=== PATIENT | female | born 1970 | race Asian ===

== ENCOUNTER 2017-09-14 20:29 | Emergency (ER) | payer OTHER ==
[2017-09-14 20:51] VITALS: BP 131/70
--- NOTE | 2017-09-14 21:20 | UC ---
Complaint Female HPI - HPI Summary HPI Summary: 47 y/o female presents to the urgent care c/o epigastric abdominal pain w/ b/L flank pain for the past 2 days. Pt developed fever today. Pt reports she had a UTI at the end on 07/2017. She did an OTC UA which was positive. She self Tx her w/ Ciprofloxacin PO for 3 days that she had at home from Previous UTI. She feel fatigue w/ body aches today. Pain starts in the flank area and radiates to the epigastric area. Pain is sharp and intermittent, 8/10. Pt has not taking anything to alleviate symptoms. Pt denies JOHNSON, SOB, chest pain, lower back pain , hematuria, urinary symptoms, Hx of renal stones, N/V/D, vaginal discharge, Hx of STD's. LMP:08/31/2017 w/ regular menstrual cycles. - History Of Current Complaint Chief Complaint: UCGU Stated Complaint: STOMACH PAIN, BODY ACHES Time Seen by Provider: 09/14/17 20:56 Hx Obtained From: Patient Hx Last Menstrual Period: 09/01/17 Onset/Duration: Gradual Onset, Lasting Days - 2 days, Still Present, Worse Since - today Timing: Constant Severity Initially: Mild Severity Currently: Moderate Pain Intensity: 8 Pain Scale Used: 0-10 Numeric Character: Sharp Aggravating Factor(s): Nothing Alleviating Factor(s): Nothing Associated Signs And Symptoms: Positive: Fever, Back Pain - B/L flank pain. Negative: Vaginal Bleeding/Discharge, Vaginal Discharge, Nausea, Vomiting(# Of Episodes =), Genital Swelling, Genital Blisters - Risk Factors Ectopic Risk Factor: Negative Ovarian Torsion Risk Factor: Negative - Allergies/Home Medications Allergies/Adverse Reactions: Allergies Allergy/AdvReac Type Severity Reaction Status Date / Time latex AdvReac Runny Nose Verified 09/14/17 21:52 Home Medications: Home Medications NK [No Home Medications Reported] 09/14/17 [History Confirmed 09/14/17] PMH/Surg Hx/FS Hx/Imm Hx Previously Healthy: Yes Other GI/ History: Recurrent UTIs - Surgical History Surgical History: Yes Surgery Procedure, Year, and Place: Lt KNEE - 05/10/17 @ [place]. C SECTIONS - Family History Known Family History: Positive: Diabetes - Social History Occupation: Employed Full-time Lives: With Family Alcohol Use: None Substance Use Type: None Smoking Status (MU): Never Smoked Tobacco Review of Systems Constitutional: Fever, Chills, Fatigue Skin: Negative Eyes: Negative ENT: Negative Respiratory: Negative Cardiovascular: Negative Gastrointestinal: Abdominal Pain - epigastric abdominal pain Genitourinary: Other - B/L flank pain Motor: Negative Neurovascular: Negative Musculoskeletal: Negative Neurological: Negative Psychological: Negative Is Patient Immunocompromised?: No All Other Systems Reviewed And Are Negative: Yes Physical Exam - Summary Physical Exam Summary: VITAL SIGNS: Reviewed. GENERAL: Patient is a well developed and nourished female who is sitting comfortable in the examining table. Patient is not in any acute respiratory distress. HEAD AND FACE: No signs of trauma. No ecchymosis, hematomas or skull depressions. No sinus tenderness. EYES: PERRLA, EOMI x 2, No injected conjunctiva, clear watery eyes, no nystagmus. No photophobia. EARS: Hearing grossly intact. Ear canals and tympanic membranes are within normal limits. MOUTH: pharynx with no erythema, no exudates,no palatal petechiae. no B/L tonsillar enlargement Uvula in midline. NECK: Supple, trachea is midline, no lymphadenopathy, no JVD, no carotid bruit, no c-spine tenderness, neck with full ROM. CHEST: Symmetric, no tenderness at palpation LUNGS: Clear to auscultation bilaterally. No wheezing or crackles. CVS: Regular rate and rhythm, S1 and S2 present, no murmurs or gallops appreciated. ABDOMEN: Soft, non-tender. No signs of distention. No rebound no guarding, and no masses palpated. Bowel sounds are normal. BACK:no scoliosis or lesions, non tender to palpation, Positive B/L CVA tenderness EXTREMITIES: FROM in all major joints, no edema, no cyanosis or clubbing. NEURO: Alert and oriented x 3. No acute neurological deficits. Speech is normal and follows commands. SKIN: Dry and warm Triage Information Reviewed: Yes Vital Signs: Initial Vital Signs Temp 100.5 F 09/14/17 20:47 Pulse 78 09/14/17 20:47 Resp 20 09/14/17 20:47 BP 131/70 09/14/17 20:47 Pulse Ox 100 09/14/17 20:47 Complaint Female Dx - Course Course Of Treatment: 47 y/o female presents to the urgent care c/o epigastric abdominal pain w/ b/L flank pain for the past 2 days. Pt developed fever today. Pt reports she had a UTI at the end on 07/2017. She did an OTC UA which was positive. She self Tx her w/ Ciprofloxacin PO for 3 days that she had at home from Previous UTI. She feel fatigue w/ body aches today. Pain starts in the flank area and radiates to the epigastric area. Pain is sharp and intermittent, 8/10. Pt has not taking anything to alleviate symptoms. Pt denies JOHNSON, SOB, chest pain, lower back pain, urinary symptoms, hematuria, Hx of renal stones, N/V/D, vaginal discharge, Hx of STD's. LMP:08/31/2017 w/ regular menstrual cycles. Hx obtained. PE: Pt is febrile : 100.5F w/ B/L CVA tenderness and point tenderness on epigastric area on examiantion. UA ordered: trace of ketones. Pt may be mildly dehydrated. Symptoms discussed w/ Dr Rodriguez and since Pt is febrile she recommends Pt to go to the ER for further work -up. At this moment no CT or ultrasound available. Also Pt needs blood work since Pt seems in mild pain distress. Pt expalined the need for further work up and the need to go to the ER. Pt understood and agreed and stated he will take Pt to the ER on his private car. Pt left the clinic hemodynamically stable, A&OX3. - Differential Dx/Diagnosis Differential Diagnosis/HQI/PQRI: Pelvic Inflammatory Disease, Renal Colic, Sexually Transmitted Disease, Ureteral Stone, Urinary Tract Infection Provider Diagnoses: 1- B/L Flank pain. 2-Acute epigastric abdominal pain. 3- fever - Physician Notifications Discussed Patient Care With: Moraima Rodriguez - Dr Rodriguez agreed w/ Pt's plan of care. Discharge - Sign-Out/Discharge Documenting (check all that apply): Discharge/Admit/Transfer - Pt highly recommended to go to the [place] ER for further treatment. - Discharge Plan Condition: Stable Disposition: TRANS HIGHER LVL OF CARE FAC Patient Education Materials: Flank Pain (ED) Referrals: Enmanuel Gu MD [Primary Care Provider] - 2 Days Additional Instructions: I think you need a higher level or care for your presenting symptoms. I highly recommend you to go to the ER for further evaluation and treatment. The risks of not going can be , sepsis, pyelonephritis. - Billing Disposition and Condition Condition: STABLE Disposition: Trans Higher Lvl of Care Fac
== END 2017-09-14 21:24 | disposition short-term general hospital (02) ==
LOC: UCEAST 20:29
DX: R10.13 Epigastric pain (principal); R50.9 Fever, unspecified; R53.83 Other fatigue; R52 Pain, unspecified
CPT/HCPCS: 81003; 99201; G0463

== ENCOUNTER 2017-09-14 21:42 | Emergency (ER) | payer OTHER ==
[2017-09-14] MEDS ORDERED: NS 0.9% 1000 ML* 1,000 ML IV ONE (22:47)
[2017-09-14 22:49] LABS: ABS Basophils 0.1 10^3/ul (0-0.2); ABS Eosinophils 0.1 10^3/ul (0-0.6); ABS Lymphocytes 1.3 10^3/ul (1.0-4.8); ABS Monocytes 0.5 10^3/ul (0-0.8); ABS Neutrophils 3.6 10^3/ul (1.5-7.7); ABS Nucleated RBC 0 10^3/ul; Eosinophil % 2.4 % (0-6); Hematocrit 39 % (35-47); Hemoglobin 13.6 g/dl (12.0-16.0); Mean Corpuscular HGB Conc 35 g/dl (31-36); Mean Corpuscular Hemoglobin 33 pg (27-31); Mean Corpuscular Volume 93 fL (80-97); Mean Platelet Volume 7.7 um3 (7.4-10.4); Nucleated Red Blood Cells % 0; Platelet Count 270 10^3/ul (150-450); Red Blood Count 4.19 10^6/ul (4.00-5.40); Red Cell Distribution Width 13 % (10.5-15); White Blood Count 5.5 10^3/ul (3.5-10.8)
[2017-09-14 22:54] VITALS: BP 112/78
[2017-09-14 23:04] LABS: Urine Appearance Clear; Urine Blood Negative (Negative); Urine Color Straw; Urine Ketones Negative (Negative); Urine Protein Negative (Negative); Urine Specific Gravity 1.005 (1.010-1.030); Urine Urobilinogen Negative (Negative)
[2017-09-14 23:06] LABS: EGFR Non-African American 85.1 (>60)
--- NOTE | 2017-09-15 00:53 | ED ---
HPI Febrile Illness - HPI Summary HPI Summary: 47-year-old female presents with malaise, bilateral flank pain and abdominal pain for the past week. She states she still diagnosis of UTI based on the home kit 3 weeks ago. She states she took old Cipro that she had home. States her symptoms of uti and resolved. A week ago she got bit by a bug. She is unsure what felt got bit by but is requesting was West Nile. States that a day later she developed some malaise. She's been having intermittent fevers. She hasn't taken anything for fevers. She admits to nausea but denies any diarrhea or vomiting. No blood in her stool. She denies any headache. She admits to generalized body aches. Some neck stiffness but no photophobia. Has full range of motion of neck. No sore throat. No cough. No shortness of breath or chest pain. She states her belly pain is in her epigastric region. States her pain initially started with lower and then moved up to the epigastric. She denies any abnormal vaginal discharge. No hematuria or history of kidney stones. She states that she has bilateral flank pain that has been keeping up at night. No injury. No saddle anesthesia or loss of bowel or bladder. - History of Current Complaint Chief Complaint: EDFlankPain Time Seen by Provider: 09/14/17 22:19 Hx Last Menstrual Period: 09/01/17 Pain Intensity: 5 - Allergy/Home Medications Allergies/Adverse Reactions: Allergies Allergy/AdvReac Type Severity Reaction Status Date / Time latex AdvReac Runny Nose Verified 09/14/17 21:52 PMH/Surg Hx/FS Hx/Imm Hx Endocrine/Hematology History: Denies: Hx Diabetes, Hx Thyroid Disease Cardiovascular History: Denies: Hx Hypertension, Hx Pacemaker/ICD Respiratory History: Denies: Hx Asthma, Hx Chronic Obstructive Pulmonary Disease (COPD) GI History: Denies: Hx Ulcer History: Reports: Hx Renal Disease - IGA - IMMUNO DISORDER Sensory History: Denies: Hx Hearing Aid Psychiatric History: Denies: Hx Panic Disorder - Surgical History Surgery Procedure, Year, and Place: Lt KNEE - 05/10/17 @ [place]. C SECTIONS Infectious Disease History: No Infectious Disease History: Denies: Hx Hepatitis, Hx Human Immunodeficiency Virus (HIV), Traveled Outside the [place] in Last 30 Days - Family History Known Family History: Negative: Diabetes - Social History Alcohol Use: None Substance Use Type: Reports: None Smoking Status (MU): Never Smoked Tobacco Review of Systems Positive: Fever, Fatigue Negative: Chest Pain Negative: Shortness Of Breath, Cough Positive: Abdominal Pain, Nausea. Negative: Vomiting, Diarrhea Positive: Weakness All Other Systems Reviewed And Are Negative: Yes Physical Exam Triage Information Reviewed: Yes Vital Signs On Initial Exam: Initial Vitals Temp Pulse Resp BP Pulse Ox 98.7 F 78 16 112/79 100 09/14/17 21:47 09/14/17 21:47 09/14/17 21:47 09/14/17 21:47 09/14/17 21:47 Vital Signs Reviewed: Yes Appearance: Positive: Well-Appearing Skin: Positive: Warm, Dry Head/Face: Positive: Normal Head/Face Inspection Eyes: Positive: Normal, EOMI, SELINA, Conjunctiva Clear ENT: Positive: Normal ENT inspection, Pharynx normal, TMs normal Neck: Positive: Supple, Nontender, No Lymphadenopathy Respiratory/Lung Sounds: Positive: Clear to Auscultation, Breath Sounds Present Cardiovascular: Positive: Normal, RRR Abdomen Description: Positive: Soft, Other: - tenderness epigastric, neg [place]. Negative: CVA Tenderness (R), CVA Tenderness (L) Bowel Sounds: Positive: Present Musculoskeletal: Positive: Normal Neurological: Positive: Normal Psychiatric: Positive: Normal Diagnostics - Vital Signs Vital Signs Temp Pulse Resp BP Pulse Ox 09/14/17 22:51 69 100 09/14/17 22:50 112/78 09/14/17 22:19 98.5 F 09/14/17 21:47 98.7 F 78 16 112/79 100 - Laboratory Lab Results: Lab Results 09/14/17 09/14/17 09/14/17 Range/Units 22:40 22:42 22:42 WBC 5.5 (3.5-10.8) 10^3/ul RBC 4.19 (4.00-5.40) 10^6/ul Hgb 13.6 (12.0-16.0) g/dl Hct 39 (35-47) % MCV 93 (80-97) fL MCH 33 H (27-31) pg MCHC 35 (31-36) g/dl RDW 13 (10.5-15) % Plt Count 270 (150-450) 10^3/ul MPV 7.7 (7.4-10.4) um3 Neut % (Auto) 64.7 (38-83) % Lymph % (Auto) 23.0 L (25-47) % [place] % (Auto) 9.0 H (0-7) % Eos % (Auto) 2.4 (0-6) % Baso % (Auto) 0.9 (0-2) % Absolute Neuts (auto) 3.6 (1.5-7.7) 10^3/ul Absolute Lymphs (auto) 1.3 (1.0-4.8) 10^3/ul Absolute Monos (auto) 0.5 (0-0.8) 10^3/ul Absolute Eos (auto) 0.1 (0-0.6) 10^3/ul Absolute Basos (auto) 0.1 (0-0.2) 10^3/ul Absolute Nucleated RBC 0 10^3/ul Nucleated RBC % 0 D-Dimer, Quantitative (Less Than 230) ng/mL Sodium 136 (135-145) mmol/L Potassium 3.3 L (3.5-5.0) mmol/L Chloride 105 (101-111) mmol/L Carbon Dioxide 24 (22-32) mmol/L Anion Gap 7 (2-11) mmol/L BUN 14 (6-24) mg/dL Creatinine 0.73 (0.51-0.95) mg/dL Est GFR ( Amer) 103.0 (>60) Est GFR (Non-Af Amer) 85.1 (>60) BUN/Creatinine Ratio 19.2 (8-20) Glucose 93 (70-100) mg/dL Lactic Acid (0.5-2.0) mmol/L Calcium 9.5 (8.6-10.3) mg/dL Total Bilirubin 0.50 (0.2-1.0) mg/dL AST 13 (13-39) U/L ALT 10 (7-52) U/L Alkaline Phosphatase 36 (34-104) U/L C-Reactive Protein 4.03 (<8.01) mg/L Total Protein 7.5 (6.4-8.9) g/dL Albumin 4.4 (3.2-5.2) g/dL Globulin 3.1 (2-4) g/dL Albumin/Globulin Ratio 1.4 (1-3) Lipase 55 (11.0-82.0) U/L Beta HCG, Quant < 0.60 mIU/mL Urine Color Straw Urine Appearance Clear Urine pH 8.0 (5-9) Ur Specific [place] 1.005 L (1.010-1.030) Urine Protein Negative (Negative) Urine Ketones Negative (Negative) Urine Blood Negative (Negative) Urine Nitrate Negative (Negative) Urine Bilirubin Negative (Negative) Urine Urobilinogen Negative (Negative) Ur Leukocyte Esterase Negative (Negative) Urine Glucose Negative (Negative) 09/14/17 09/15/17 Range/Units 22:42 00:20 WBC (3.5-10.8) 10^3/ul RBC (4.00-5.40) 10^6/ul Hgb (12.0-16.0) g/dl Hct (35-47) % MCV (80-97) fL MCH (27-31) pg MCHC (31-36) g/dl RDW (10.5-15) % Plt Count (150-450) 10^3/ul MPV (7.4-10.4) um3 Neut % (Auto) (38-83) % Lymph % (Auto) (25-47) % [place] % (Auto) (0-7) % Eos % (Auto) (0-6) % Baso % (Auto) (0-2) % Absolute Neuts (auto) (1.5-7.7) 10^3/ul Absolute Lymphs (auto) (1.0-4.8) 10^3/ul Absolute Monos (auto) (0-0.8) 10^3/ul Absolute Eos (auto) (0-0.6) 10^3/ul Absolute Basos (auto) (0-0.2) 10^3/ul Absolute Nucleated RBC 10^3/ul Nucleated RBC % D-Dimer, Quantitative < 200 (Less Than 230) ng/mL Sodium (135-145) mmol/L Potassium (3.5-5.0) mmol/L Chloride (101-111) mmol/L Carbon Dioxide (22-32) mmol/L Anion Gap (2-11) mmol/L BUN (6-24) mg/dL Creatinine (0.51-0.95) mg/dL Est GFR ( Amer) (>60) Est GFR (Non-Af Amer) (>60) BUN/Creatinine Ratio (8-20) Glucose (70-100) mg/dL Lactic Acid 0.7 (0.5-2.0) mmol/L Calcium (8.6-10.3) mg/dL Total Bilirubin (0.2-1.0) mg/dL AST (13-39) U/L ALT (7-52) U/L Alkaline Phosphatase (34-104) U/L C-Reactive Protein (<8.01) mg/L Total Protein (6.4-8.9) g/dL Albumin (3.2-5.2) g/dL Globulin (2-4) g/dL Albumin/Globulin Ratio (1-3) Lipase (11.0-82.0) U/L Beta HCG, Quant mIU/mL Urine Color Urine Appearance Urine pH (5-9) Ur Specific [place] (1.010-1.030) Urine Protein (Negative) Urine Ketones (Negative) Urine Blood (Negative) Urine Nitrate (Negative) Urine Bilirubin (Negative) Urine Urobilinogen (Negative) Ur Leukocyte Esterase (Negative) Urine Glucose (Negative) Result Diagrams: 09/14/17 22:42 09/14/17 22:42 Lab Statement: Any lab studies that have been ordered have been reviewed, and results considered in the medical decision making process. - Ultrasound No standard instances Ultrasound Interpretation: No Acute Changes Ultrasound Interpretation Completed By: Radiologist Course/Dx - Course Course Of Treatment: 47-year-old female presents with malaise, bilateral flank pain and abdominal pain for the past week. She states she still diagnosis of UTI based on the home kit 3 weeks ago. She states she took old Cipro that she had home. States her symptoms of uti and resolved. A week ago she got bit by a bug. She is unsure what felt got bit by but is requesting was West Nile. States that a day later she developed some malaise. She's been having intermittent fevers. She hasn't taken anything for fevers. She admits to nausea but denies any diarrhea or vomiting. No blood in her stool. She denies any headache. She admits to generalized body aches. Some neck stiffness but no photophobia. Has full range of motion of neck. No sore throat. No cough. No shortness of breath or chest pain. She states her belly pain is in her epigastric region. States her pain initially started with lower and then moved up to the epigastric. She denies any abnormal vaginal discharge. No hematuria or history of kidney stones. She states that she has bilateral flank pain that has been keeping up at night. No injury. No saddle anesthesia or loss of bowel or bladder. On exam tenderness in epigastric region. Negative [place]'s. Pain is not in her right upper quadrant. Positive CVA tenderness bilaterally. Labs normal wbc CRP and lactate. Renal ultrasound negative. Urine shows no infection. Explained likely is a viral symptoms with all symptoms. ordered lyme and west nile although explained will take some time to come back. Patient will follow-up with primary. Patient understands agrees with plan. - Febrile Illness Differential Diagnoses: GI Disease, Pneumonia, Viremia - Diagnoses Provider Diagnoses: Fever, Abdominal pain Discharge - Sign-Out/Discharge Documenting (check all that apply): Discharge/Admit/Transfer - Discharge Plan Condition: Good Disposition: HOME Patient Education Materials: Viral Syndrome (ED) Referrals: Enmanuel Gu MD [Primary Care Provider] - Additional Instructions: symptoms likely from a viral syndrome try to stay hydrated take tyenlol for pain every 6 hours as needed Follow up with primary within 5 days Return to ED if develop any new or worsening symptoms - Billing Disposition and Condition Condition: GOOD Disposition: Home
--- NOTE | 2017-09-15 06:38 | RAD ---
INDICATION: Bilateral flank pain COMPARISON: None TECHNIQUE: Longitudinal and transverse scans of the kidneys were obtained. FINDINGS: Kidneys: The kidneys are normal in size and echogenicity. No renal masses, calculi, or hydronephrosis is seen. The right kidney measures 10.6 x 4.7 x 4.6 cm and the left kidney 10.3 x 4.3 x 5.5 cm. Other: There is an incidental hepatic cyst IMPRESSION: NO SONOGRAPHIC ABNORMALITIES OF EITHER KIDNEY.
== END 2017-09-15 00:53 | disposition home or self-care (01) ==
LOC: ED 21:42
DX: R50.9 Fever, unspecified (principal); R10.13 Epigastric pain; R53.83 Other fatigue; R11.0 Nausea; R53.81 Other malaise; Z91.040 Latex allergy status; N28.9 Disorder of kidney and ureter, unspecified; D81.9 Combined immunodeficiency, unspecified
CPT/HCPCS: 36415; 76775; 80053; 81003; 83605; 83690; 84702; 85025; 85379; 86140; 86618; 86788; 86789; 87040; 96360; 99283

== ENCOUNTER 2018-04-09 19:21 | Emergency (ER) | payer OTHER ==
--- OUTSIDE RECORDS SUMMARY | 2018-04-09 19:27 | XMS REPORT | Continuity of Care Document ---
:1970 External Reference #:[id number] Author Name Rosanne Walker Care Team Providers Name Role Phone Enmanuel Gu MD Primary Care Physician Unavailable Payers Type Date Identification Numbers Payment Provider Subscriber Policy Number: [id number] [employer] June Lg Márquez PayID: [id number] [address] [place] [address] Advance Directives Type Date Description Status Comment Other Directive 08/06/2017 Health Care Proxy Current and Verified Problems Date Description Provider Status Onset: 08/13/2017 Primary IgA nephropathy [facility] M.D[facility] Active Note: U/A completely normal 09/14/17 in ER; Onset: 08/20/2017 Patellar tendonitis Jaswant Valencia MD Active Onset: 03/13/2013 Polyp of gallbladder Adolfo Chang MD Active Note: in [place] multiple largest 6mm; Onset: 03/13/2013 Liver cyst Adolfo Chang MD Active Note: right lobe 2cm with septum Onset: 02/11/1991 Helicobacter-associated disease Adolfo Chang MD Active Note: treated in [place] and [place] (2016) Onset: 02/12/2004 Insomnia Adolfo Chang MD Active Note: took medical leave in 2011 Onset: 06/04/2017 Laceration without foreign body, left Jaswant Valencia MD Inactive knee, subsequent encounter Inactive: 08/13/2017 Family History Date Family Member(s) Problem(s) Comments Father Heart Disease Onset: (08/13/2017) Father 78 Father Diabetes Father Gout Onset: (08/13/2017) Mother 72 Mother Diabetes Mother Depression Siblings 1 Onset: (08/13/2017) First Sister 45 Maternal Grandmother Colon Cancer Social History Type Date Description Comments Sex Unknown Lives With 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 Tobacco Use Start: Unknown Never Smoked Cigarettes Smoking Status Reviewed: 03/13/18 Never Smoked Cigarettes ETOH Use 08/13/2017 Denies alcohol use Tobacco Use Start: Unknown Patient has never smoked Recreational Drug Use Denies Drug Use Exercise Type/Frequency Yoga Allergies, Adverse Reactions, Alerts Date Description Reaction Status Severity Comments 05/21/2017 NKDA Active 01/31/2018 Mold Active Medications Medication Date Status Form Strength Qnty SIG Indications Ordering Provider Triamcinolone Active Cream 0.1% 15gm apply Enmanuel Acetonide 018 every day Lion Gu, as needed SHEKHAR Jaqcues Calcium Citrate Active Tablets 200mg once Unknown 000 daily as needed No Active Hx Unknown Medications 018 - 018 Immunizations CPT Code Status Date Vaccine Lot # [id number] Given 05/10/2017 Tetanus And Diptheria (Td) For Adult Use Preservative Free Vital Signs Date Vital Result Comment 03/13/2018 2:55pm Height 60.23 inches 5'0.23" Weight 106.00 lb Heart Rate 67 /min BP Systolic 101 mmHg BP Diastolic 67 mmHg Respiratory Rate 16 /min Body Temperature 98.9 F O2 % BldC Oximetry 99 % BMI (Body Mass Index) 20.5 kg/m2 02/10/2018 2:16pm Height 60.23 inches 5'0.23" Weight 107.00 lb Heart Rate 63 /min BP Systolic 116 mmHg BP Diastolic 78 mmHg Respiratory Rate 18 /min O2 % BldC Oximetry 100 % BMI (Body Mass Index) 20.7 kg/m2 01/31/2018 11:26am Height 60.23 inches 5'0.23" Weight 115.38 lb Heart Rate 59 /min BP Systolic 103 mmHg BP Diastolic 68 mmHg Respiratory Rate 18 /min Body Temperature 96.9 F O2 % BldC Oximetry 100 % BMI (Body Mass Index) 22.4 kg/m2 11/19/2017 3:33pm Height 60.23 inches 5'0.23" Weight 111.00 lb Heart Rate 68 /min BP Systolic 102 mmHg BP Diastolic 66 mmHg Respiratory Rate 18 /min Pain Level 0 BMI (Body Mass Index) 21.5 kg/m2 09/13/2017 9:34am Height 60.23 inches 5'0.23" Weight 111.00 lb BP Systolic 108 mmHg BP Diastolic 64 mmHg Respiratory Rate 18 /min Pain Level 6 BMI (Body Mass Index) 21.5 kg/m2 09/05/2017 12:01pm Height 60.23 inches 5'0.23" Weight 110.00 lb Heart Rate 77 /min BP Systolic 98 mmHg BP Diastolic 80 mmHg O2 % BldC Oximetry 99 % BMI (Body Mass Index) 21.3 kg/m2 08/20/2017 9:49am Height 60.23 inches 5'0.23" Weight 111.00 lb Heart Rate 64 /min BP Systolic 86 mmHg BP Diastolic 62 mmHg Body Temperature 98.8 F Pain Level 4 BMI (Body Mass Index) 21.5 kg/m2 08/13/2017 3:15pm Height 60.25 inches 5'0.25" Weight 111.00 lb Heart Rate 64 /min BP Systolic Sitting 120 mmHg BP Diastolic Sitting 62 mmHg Body Temperature 97.3 F O2 % BldC Oximetry 98 % BMI (Body Mass Index) 21.5 kg/m2 06/04/2017 10:53am Height 60 inches 5'0" Weight 108.00 lb BP Systolic 116 mmHg BP Diastolic 72 mmHg Respiratory Rate 18 /min Pain Level 2 BMI (Body Mass Index) 21.1 kg/m2 05/28/2017 2:31pm Height 60 inches 5'0" Weight 108.00 lb per pt Heart Rate 70 /min reg BP Systolic Sitting 110 mmHg Rue BP Diastolic Sitting 70 mmHg Rue Respiratory Rate 16 /min Pain Level 0 BMI (Body Mass Index) 21.1 kg/m2 05/21/2017 9:23am Height 60 inches 5'0" Weight 108.00 lb Heart Rate 69 /min Respiratory Rate 14 /min Body Temperature 98.1 F Pain Level 3 BMI (Body Mass Index) 21.1 kg/m2 Results Test Date Facility Test Result H/L Range Note Xray 02/28/2018 [facility] US Gallbladder <pending> [address] [place] [address] [phone] US Liver <pending> CBC No Diff 02/20/2018 [facility] White Blood 3.5 10^3/uL N 3.5-10.[address] [place] [address] [phone] Red Blood Count 4.21 10^6/uL N 4.00-5.40 Hemoglobin 13.7 g/dL N 12.0-16.0 Hematocrit 40 % N 35-47 Mean Corpuscular Volume 95 fL N 80-97 Mean Corpuscular Hemoglobin 33 pg High 27-31 Mean Corpuscular HGB Conc 34 g/dL N 31-36 Red Cell Distribution Width 13 % N 10.5-15 Platelet Count 320 10^3/uL N 150-450 Mean Platelet Volume 8.1 fL N 7.4-10.4 Liver Function 02/20/2018 [facility] Total Protein 7.0 g/dL N 6.4-8.[address] [place] [address] [phone] Albumin 4.5 g/dL N 3.2-5.2 Globulin 2.5 g/dL N 2-4 Albumin/Globulin Ratio 1.8 N 1-3 Total Bilirubin 0.70 mg/dL N 0.2-1.0 Direct Bilirubin 0.10 mg/dL N 0.03-0.18 Indirect Bilirubin 0.6 mg/dL N 0.3-1.0 Alkaline Phosphatase 38 U/L N 34-104 Alt 11 U/L N 7-52 Ast 13 U/L N 13-39 Lipid Profile 02/20/2018 [facility] Triglycerides 90 mg/dL 1 (Trig/Chol/HDL) [address] [place] [address] [phone] Cholesterol 178 mg/dL 2 HDL Cholesterol 57.6 mg/dL 3 LDL Cholesterol 102 mg/dL 4 Laboratory test 09/15/2017 [facility] D Dimer < 200 N Less Than [address] Quantitative ng/mL [address] [place] [address] [phone] CBC Auto Diff 09/14/2017 [facility] White Blood Count 5.5 N 3.5-10.[address] 10^3/[place] [address] [phone] Red Blood Count 4.19 10^6/uL N 4.00-5.40 Hemoglobin 13.6 g/dL N 12.0-16.0 Hematocrit 39 % N 35-47 Mean Corpuscular Volume 93 fL N 80-97 Mean Corpuscular Hemoglobin 33 pg High 27-31 Mean Corpuscular HGB Conc 35 g/dL N 31-36 Red Cell Distribution Width 13 % N 10.5-15 Platelet Count 270 10^3/uL N 150-450 Mean Platelet Volume 7.7 um3 N 7.4-10.4 Abs Neutrophils 3.6 10^3/uL N 1.5-7.7 Abs Lymphocytes 1.3 10^3/uL N 1.0-4.8 Abs Monocytes 0.5 10^3/uL N 0-0.8 Abs Eosinophils 0.1 10^3/uL N 0-0.6 Abs Basophils 0.1 10^3/uL N 0-0.2 Abs Nucleated RBC 0 10^3/uL Granulocyte % 64.7 % N 38-83 Lymphocyte % 23.0 % Low 25-47 Monocyte % 9.0 % High 0-7 Eosinophil % 2.4 % N 0-6 Basophil % 0.9 % N 0-2 Nucleated Red Blood Cells % 0 Urinalysis Profile 09/14/2017 [facility] Urine Color Straw [address] [place] [address] [phone] Urine Appearance Clear Urine Specific [place] 1.005 Low 1.010-1.030 Urine pH 8.0 N 5-9 Urine Urobilinogen Negative Negative Urine Ketones Negative Negative Urine Protein Negative Negative Urine Leukocytes Negative Negative Urine Blood Negative Negative Urine Nitrite Negative Negative Urine Bilirubin Negative Negative Urine Glucose Negative Negative Laboratory test 09/14/2017 [facility] Lactic Acid 0.7 mmol/L N 0.5-2.0 6 finding [address] [place] [address] [phone] Comp Metabolic 09/14/2017 [facility] Sodium 136 mmol/L N 135- 145 Panel [address] [place] [address] [phone] Potassium 3.3 mmol/L Low 3.5-5.0 Chloride 105 mmol/L N 101-111 Co2 Carbon Dioxide 24 mmol/L N 22-32 Anion Gap 7 mmol/L N 2-11 Glucose 93 mg/dL N 70-100 Blood Urea Nitrogen 14 mg/dL N 6-24 Creatinine 0.73 mg/dL N 0.51-0.95 BUN/Creatinine Ratio 19.2 N 8-20 Calcium 9.5 mg/dL N 8.6-10.3 Total Protein 7.5 g/dL N 6.4-8.9 Albumin 4.4 g/dL N 3.2-5.2 Globulin 3.1 g/dL N 2-4 Albumin/Globulin Ratio 1.4 N 1-3 Total Bilirubin 0.50 mg/dL N 0.2-1.0 Alkaline Phosphatase 36 U/L N 34-104 Alt 10 U/L N 7-52 Ast 13 U/L N 13-39 Egfr Non- 85.1 >60 Egfr 103.0 >60 7 Laboratory test finding 09/14/2017 [facility] Lipase 55 U/L N 11.0-82.[address] [place] [address] [phone] C Reactive Protein 4.03 mg/L N <8.01 HCG < 0.60 mIU/mL 8 Blood Culture SEE RESULT BELOW 9 Lyme Disease Serology Negative Negative 10 West Nile Igg 09/14/2017 [facility] West Nile Virus Negative Negative And Igm [address] [place] [address] [phone] West Nile Virus IgM Negative Negative West Nile Serum Interpretation See Comment 11 Poc Urinalysis 09/14/2017 [facility] Poc Glucose, Negative Negative [address] [place] [address] [phone] Poc Bilirubin, Urine Negative Negative Poc Ketone, Urine Trace Abnormal Negative Poc Specific [place], Urine 1.010 N 1.010-1.030 Poc Blood, Urine Negative Negative Poc pH, Urine 8.5 N 5-9 Poc Protein, Urine Negative Negative Poc Urobilinogen, Urine 1.0 Negative Poc Nitrite, Urine Negative Negative Poc Leukocytes, Urine Negative Negative Poc Color, Urine Judith Poc Clarity, Urine Cloudy 12 Laboratory test 09/05/2017 [facility] Cytology SEE RESULT 13, [address] [place] [address] [phone] 1 Desirable: <150 Borderline High: 150-199 High: 200-499 Very High: >500 2 Desirable: <200 Borderline High: 200-239 High: >239 3 Low: <40 Desirable: 40-60 High: >60 4 Desirable: <100 Near Optimal: 100-129 Borderline High: 130-159 High: 160-189 Very High: >189 5 Please note: The following may produce a false positive D Dimer test: - Rheumatoid factor greater than 60 IU/ml - Plasma hemoglobin greater than 0.05 gm/dl - Bilirubin greater than 50 mg/dl - Lipids greater than 1000 mg/dl - FDP greater than 20 ug/ml 6 [facility] Severe Sepsis and Septic Shock Management Bundle Measure requires all lactic acids initially measuring >2.0 mmol/L be repeated. 7 Because ethnic data is not always readily available, this report includes an eGFR for both -Americans and non- Americans. The National Kidney Disease Education Program (NKDEP) does not endorse the use of the MDRD equation for patients that are not between the ages of 18 and 70, are , have extremes of body size, muscle mass, or nutritional status, or are non- or non-. According to the National Kidney Foundation, irrespective of diagnosis, the stage of the disease is based on the level of kidney function: Stage Description GFR(mL/min/1.73 m(2)) 1 Kidney damage with normal or decreased GFR 90 2 Kidney damage with mild decrease in GFR 60-89 3 Moderate decrease in GFR 30-59 4 Severe decrease in GFR 15-29 5 Kidney failure <15 (or dialysis) 8 <5.0 Negative 5.0 - 25.0 Indeterminate (Repeat testing recommended after 72 hours) >25.0 Positive Perimenopausal women can display HCG levels of up to 20 mIU/mL 9 SEE RESULT BELOW Name: LG MORIAH : [address]: Omar Clarke MD Acct: [id number] Unit: [id number] AGE: 47 Location: ED Re09/14/17 SEX: F Status: REG ER SPEC: [id number] MATHEW: 09/14/[address]: Taylor WARNER REQ: [id number] RECD: 09/14/17 STATUS: JUAQUIN STOREY DR: Enmanuel Clarke MD _ SOURCE: BLOOD,VENO SPDESC: ORDERED: Blood Cult Procedure Result Reported Site Aerobic Culture Bottle Final 09/19/172243 ML No Growth Day 5 Anaerobic Culture Bottle Final 09/19/172243 ML No Growth Day 5 * ML - Main Lab . END OF REPORT DEPARTMENT OF PATHOLOGY, [address] [place] [address] Jesse Davey M.D. Director [facility] # [id number] 10 No evidence of antibodies to B. burgdorferi detected. False negative results may occur in recently infected patients (<=2 weeks) due to low or undetectable antibody levels to B. burgdorferi. If recent exposure is suspected, a second sample should be collected and tested in 2-4 weeks. Test Performed by: [facility] - [address] [address] 11 No antibodies to WNV detected. Repeat testing in 10-14 days if clinical suspicion persists. Test Performed by: [facility] - [address] [address] 12 Radio Maintainer: [id number] SEE RESULT BELOW Name: LG MÁRQUEZ : [address]: Josesito Arizmendi MD Acct: [id number] Unit: [id number] AGE: 47 Location: [facility] Re09/05/17 SEX: F Status: REG REF SPEC: [id number] MATHEW: 09/05/17-[address] [facility] [address]: Josesito Arizmendi MD REQ: [id number] RECD: 09/05/17 STATUS: SOUT _ ORDERED: TP IMAGE ANALYS, HPV/Thin Prep COMMENTS: [id number] Negative for Intraepithelial lesion or Malignancy A. Ectocervical/Endocervical Specimen Adequacy: Satisfactory of evaluation Transformation zone component identified Patient Information: HPV: High risk HPV RNA testing regardless of pap results. Actual Specimen Date: 09/05/17 Last Menstrual Date: 09/01/17 ?: N Post Menopausal?: N Hysterectomy?: N Previous Abnormal Pap Smears?:N Other Pertinent History: Prior a few yrs ago. Date Time Test Result Flag (u) Normal Range 09/05/17 1230 @ HPV RNA Negative Negative @ @ The high-risk HPV types detected by the assay include: 16, @ 18, 31, 33, 35, 39, 45, 51, 52, 56, 58, 59, 66, and 68. Signed by and Reported on: ANETA Light (ASC) 1519 This Pap test was evaluated with the assistance of the Microbion Test Imaging System. Due to cytologic findings at the edging machine catcher microscope, comprehensive manual rescreening by a Microbiology Lab Analyst may be required. The Pap Smear is a screening test designed to aid in the detection of premalignant and malignant conditions of the uterine cervix. It is not a diagnostic procedure and should not be used as the sole means of detecting cervical cancer. Both false- positive and false- negative reports do occur. Depending on your risk status, a Pap smear should be obtained and evaluated every 1-3 years. END OF REPORT DEPARTMENT OF PATHOLOGY, [address] [place] [address] Jesse Davey M.D. Director [facility] # [id number] Procedures Date Code Description Status 12/03/2017 [id number] Mammogram Completed Encounters Type Date Location Provider Dx Diagnosis Office Visit 02/10/2018 [facility] Gastroenterology Adolfo Cordoba R10.13 Epigastric pain 1:30p MD Bernardo R10.11 Right upper quadrant pain K82.4 Cholesterolosis of gallbladder G47.00 Insomnia, unspecified Office Visit 01/31/2018 10:45a [facility] Gastroenterology Thania Peter, R10.11 Right upper WALL STE[employer]ER quadrant pain R10.13 Epigastric pain Office Visit 11/19/2017 3:30p Orthopedic Jaswant Valencia M76.52 [facility] molina, left C.M.A. knee Office Visit 09/13/2017 9:30a Orthopedic Matt Guillen76.52 Patellar Services Of [facility] molina, left C.M.A. knee S81.012D Laceration without foreign body, left knee, subs encntr M25.562 Pain in left knee Office Visit 08/23/2017 10:10a [facility] Dermatology Joseph Handley MD L71.8 Other rosacea I78.8 Other diseases of capillaries Office Visit 08/20/2017 9:30a Orthopedic Matt Guillen76.52 Patellar [facility] Of [facility] molina, left C.M.A. knee S81.012D Laceration without foreign body, left knee, subs encntr Office Visit 08/13/2017 3:00p [facility] Internal Enmanuel Seymour Z00.00 Encntr for Medicine Jane Gu M.D.,FACP general adult [place] medical exam w/o abnormal findings Z00.01 Encounter for general adult medical exam w abnormal findings M76.52 Patellar tendinitis, left knee D48.5 Neoplasm of uncertain behavior of skin Office Visit 06/04/2017 10:30a Orthopedic Jaswant Valencia, S81.012D Laceration Services Of [facility] without foreign C.M.A. body, left knee, subs encntr M25.562 Pain in left knee Office Visit 05/28/2017 2:30p Orthopedic Services Jaswant Valencia, M25.562 Pain in left Of Lynne OLIVO knee S81.012D Laceration without foreign body, left knee, subs encntr Office Visit 05/21/2017 9:00a Orthopedic Services Jaswant Valencia, M25.562 Pain in left Of Lynne OLIVO knee S81.012D Laceration without foreign body, left knee, subs encntr Plan of Treatment No Information Available
[2018-04-09 19:55] VITALS: BP 109/66
[2018-04-09] MEDS ORDERED: Acetaminophen TAB* 325 MG PO ONE (19:57)
--- NOTE | 2018-04-09 20:28 | ED ---
Respiratory - HPI Summary HPI Summary: patient with hx. of cough , fever, for the last several days dry cough, mild, body aches, nasal congestion - History of Current Complaint Chief Complaint: UCRespiratory Stated Complaint: RUNNY NOSE, AND ACHES Time Seen by Provider: 04/09/18 19:27 Hx Obtained From: Patient Onset/Duration: Gradual Onset, Lasting Days Initial Severity: Moderate Current Severity: Moderate Pain Intensity: 8 Character: Cough (Nonproductive) Sputum Amount: None Sputum Color: Clear Aggravating Factor(s): Nothing Alleviating Factor(s): Nothing Associated Signs and Symptoms: Dyspnea - Allergy/Home Medications Allergies/Adverse Reactions: Allergies Allergy/AdvReac Type Severity Reaction Status Date / Time latex AdvReac Runny Nose Verified 04/09/18 19:55 PMH/Surg Hx/FS Hx/Imm Hx Previously Healthy: Yes - igA renal disease mild Endocrine/Hematology History: Denies: Hx Diabetes, Hx Thyroid Disease Cardiovascular History: Denies: Hx Hypertension, Hx Pacemaker/ICD Respiratory History: Denies: Hx Asthma, Hx Chronic Obstructive Pulmonary Disease (COPD) GI History: Denies: Hx Ulcer History: Reports: Hx Renal Disease - IGA - IMMUNO DISORDER Sensory History: Denies: Hx Hearing Aid Psychiatric History: Denies: Hx Panic Disorder - Surgical History Surgery Procedure, Year, and Place: Lt KNEE - 05/10/17 @ [place]. [facility] SECTIONS Infectious Disease History: No Infectious Disease History: Reports: Traveled Outside the [place] in Last 30 Days Denies: Hx Hepatitis, Hx Human Immunodeficiency Virus (HIV) - Family History Known Family History: Negative: Diabetes - Social History Alcohol Use: None Substance Use Type: Reports: None Hx Tobacco Use: No Smoking Status (MU): Never Smoked Tobacco Review of Systems Positive: Fever, Chills ENT: Negative Positive: Sore Throat Cardiovascular: Negative Positive: Cough Gastrointestinal: Negative Musculoskeletal: Negative Skin: Negative All Other Systems Reviewed And Are Negative: Yes Physical Exam Triage Information Reviewed: Yes Vital Signs On Initial Exam: Initial Vitals Temp Pulse Resp BP Pulse Ox 38.9 C 95 17 109/66 99 04/09/18 19:45 04/09/18 19:45 04/09/18 19:45 04/09/18 19:45 04/09/18 19:45 Vital Signs Reviewed: Yes Appearance: Positive: Well-Appearing, Well-Nourished, Ill-Appearing Skin: Positive: Warm Head/Face: Positive: Normal Head/Face Inspection Eyes: Positive: Normal, EOMI, SELINA ENT: Positive: Normal ENT inspection, Pharynx normal, Pharyngeal erythema Neck: Positive: Supple, Nontender Respiratory/Lung Sounds: Positive: Clear to Auscultation Cardiovascular: Positive: Normal, RRR Abdomen Description: Positive: Nontender Musculoskeletal: Positive: Normal Diagnostics - Vital Signs Vital Signs Temp Pulse Resp BP Pulse Ox 04/09/18 19:45 38.9 C 95 17 109/66 99 - Laboratory Lab Results: Lab Results 04/09/18 Range/Units 19:48 Influenza A (Rapid) Negative (Negative) Influenza B (Rapid) Negative (Negative) Lab Statement: Any lab studies that have been ordered have been reviewed, and results considered in the medical decision making process. Disposition - Diagnoses Provider Diagnoses: Viral URI with cough Discharge - Sign-Out/Discharge Documenting (check all that apply): Patient Departure All imaging exams completed and their final reports reviewed: Yes - Discharge Plan Condition: Fair Disposition: HOME Patient Education Materials: Viral Syndrome (ED) Referrals: Enmanuel Gu MD [Primary Care Provider] - - Billing Disposition and Condition Condition: FAIR Disposition: Home
== END 2018-04-09 20:47 | disposition home or self-care (01) ==
LOC: UCEAST 19:21
DX: J06.9 Acute upper respiratory infection, unspecified (principal); R05 Cough; Z91.040 Latex allergy status
CPT/HCPCS: 71046; 99211; A9270-GY; G0463

== ENCOUNTER 2018-11-06 11:21 | Emergency (ER) | payer OTHER ==
[2018-11-06 11:51] LABS: ABS Lymphocytes 0.8 10^3/ul (1.0-4.8); ABS Monocytes 0.3 10^3/ul (0-0.8); ABS Neutrophils 3.4 10^3/ul (1.5-7.7); Eosinophil % 0.5 %; Hematocrit 45 % (35-47); Hemoglobin 15.4 g/dL (12.0-16.0); Lymphocyte % 18.7 %; Mean Corpuscular HGB Conc 35 g/dL (31-36); Mean Corpuscular Hemoglobin 32 pg (27-31); Mean Corpuscular Volume 93 fL (80-97); Mean Platelet Volume 7.7 fL (7.4-10.4); Platelet Count 308 10^3/uL (150-450); Red Blood Count 4.79 10^6 /uL (3.70-4.87); Red Cell Distribution Width 13 % (10-15); White Blood Count 4.5 10^3/uL (3.5-10.8)
[2018-11-06] MEDS ORDERED: NS 0.9% 1000 ML** 2,000 ML IV ONE (11:51)
[2018-11-06] MEDS ORDERED: Ketorolac INJ* 30 MG/ML 1 ML VIAL IV PUSH ONE (11:57)
--- NOTE | 2018-11-06 11:59 | ED ---
GI/ HPI - HPI Summary HPI Summary: 48 year old female presents with diarrhea and abdominal pain since last night. She states that she just returned from [place] 10 days ago. She was not sick prior to this. She got she had self diagnosed uti 2 days ago and took 2 doses of Macrobid. She states the symptoms have gotten better. She states she's been having low-grade fevers. Denies nausea but no vomiting. No known blood in her stool. did not eating anything different. No one else is sick. Has no medical conditions. States she's had issues with her gallbladder and her pancreas in the past. Has history of a tubal. No history of diverticulitis or colitis. No medical conditions. Did try loperamide without any relief. - History of Current Complaint Chief Complaint: EDAbdPain Time Seen by Provider: 11/06/18 11:37 Stated Complaint: SEVERE ABD PAIN DIARRHEA PER PT Hx Last Menstrual Period: 03/16 Pain Intensity: 7 - Allergy/Home Medications Allergies/Adverse Reactions: Allergies Allergy/AdvReac Type Severity Reaction Status Date / Time latex AdvReac Runny Nose Verified 04/09/18 19:55 PMH/Surg Hx/FS Hx/Imm Hx Endocrine/Hematology History: Denies: Hx Diabetes, Hx Thyroid Disease Cardiovascular History: Denies: Hx Hypertension, Hx Pacemaker/ICD Respiratory History: Denies: Hx Asthma, Hx Chronic Obstructive Pulmonary Disease (COPD) GI History: Denies: Hx Ulcer History: Reports: Hx Renal Disease - IGA - IMMUNO DISORDER Sensory History: Denies: Hx Hearing Aid Psychiatric History: Denies: Hx Panic Disorder - Surgical History Surgery Procedure, Year, and Place: Lt KNEE - 05/10/17 @ [place]. C SECTIONS Infectious Disease History: No Infectious Disease History: Reports: Traveled Outside the [place] in Last 30 Days Denies: Hx Hepatitis, Hx Human Immunodeficiency Virus (HIV) - Family History Known Family History: Negative: Diabetes - Social History Alcohol Use: None Substance Use Type: Reports: None Hx Tobacco Use: No Smoking Status (MU): Never Smoked Tobacco Review of Systems Negative: Fever Negative: Chest Pain Negative: Shortness Of Breath Positive: Abdominal Pain, Diarrhea, Nausea All Other Systems Reviewed And Are Negative: Yes Physical Exam Triage Information Reviewed: Yes Vital Signs On Initial Exam: Initial Vitals Temp Pulse Resp BP Pulse Ox 98.5 F 79 18 116/72 98 11/06/18 11:26 08/15/19 11:26 11/06/18 11:26 11/06/18 11:26 11/06/18 11:26 Vital Signs Reviewed: Yes Appearance: Positive: Well-Appearing Skin: Positive: Warm, Dry Head/Face: Positive: Normal Head/Face Inspection Eyes: Positive: Normal, Conjunctiva Clear ENT: Positive: Pharynx normal Respiratory/Lung Sounds: Positive: Clear to Auscultation, Breath Sounds Present Cardiovascular: Positive: Normal, RRR Abdomen Description: Positive: Soft, Other: - tenderness diffuse, greatest on left side Bowel Sounds: Positive: Present Musculoskeletal: Positive: Normal Neurological: Positive: Normal Psychiatric: Positive: Normal Diagnostics - Vital Signs Vital Signs Temp Pulse Resp BP Pulse Ox 11/06/18 11:26 98.5 F 79 18 116/72 98 - Laboratory Lab Results: Lab Results 11/06/18 Range/Units 11:42 WBC 4.5 (3.5-10.8) 10^3/uL RBC 4.79 (3.70-4.87) 10^6 /uL Hgb 15.4 (12.0-16.0) g/dL Hct 45 (35-47) % MCV 93 (80-97) fL MCH 32 H (27-31) pg MCHC 35 (31-36) g/dL RDW 13 (10-15) % Plt Count 308 (150-450) 10^3/uL MPV 7.7 (7.4-10.4) fL Neut % (Auto) 73.9 % Lymph % (Auto) 18.7 % Chase % (Auto) 6.2 % Eos % (Auto) 0.5 % Baso % (Auto) 0.7 % Absolute Neuts (auto) 3.4 (1.5-7.7) 10^3/ul Absolute Lymphs (auto) 0.8 L (1.0-4.8) 10^3/ul Absolute Monos (auto) 0.3 (0-0.8) 10^3/ul Absolute Eos (auto) 0.0 (0-0.6) 10^3/ul Absolute Basos (auto) 0.0 (0-0.2) 10^3/ul Absolute Nucleated RBC 0.0 10^3/ul Nucleated RBC % 0.0 Result Diagrams: 11/06/18 11:42 11/06/18 11:42 Lab Statement: Any lab studies that have been ordered have been reviewed, and results considered in the medical decision making process. - CT abd CT Interpretation Completed By: Radiologist Summary of CT Findings: IMPRESSION: NO ACUTE CT PATHOLOGY OF THE VISUALIZED ABDOMEN OR PELVIS. GIGU Course/Dx - Course Course Of Treatment: 48 year old female presents with diarrhea and abdominal pain since last night. She states that she just returned from [place] 10 days ago. She was not sick prior to this. She got she had self diagnosed uti 2 days ago and took 2 doses of Macrobid. She states the symptoms have gotten better. She states she's been having low-grade fevers. Denies nausea but no vomiting. No known blood in her stool. did not eating anything different. No one else is sick. Has no medical conditions. States she's had issues with her gallbladder and her pancreas in the past. Has history of a tubal. No history of diverticulitis or colitis. No medical conditions. Did try loperamide without any relief. On exam has mild diffuse tenderness greatest in left lower quadrant. wbc Normal. CRP Normal. Patient able to give stool culture. CT no pathology. c diff neg. urine no infection. will treat as travel diarrhea as azithromycin. patient understand and agrees with plan. - Diagnoses Differential Diagnoses - Female: Colitis, Diverticulosis, Gastroenteritis (Viral ) Provider Diagnoses: Abdominal pain, Diarrhea Discharge - Sign-Out/Discharge Documenting (check all that apply): Patient Departure Patient Received Moderate/Deep Sedation with Procedure: No - Discharge Plan Condition: Good Disposition: HOME Prescriptions: Azithromycin 500 mg PO DAILY #3 tablet Patient Education Materials: Acute Diarrhea (ED) Referrals: Breanne Flynn MD [Primary Care Provider] - Additional Instructions: azithromycin one tablet daily for 3 days take otc loperamide Initial: 4 mg (2 tablets), followed by 2 mg (1 tablet) after each loose stool (maximum: 16 mg/day) Drink small amounts of fluid as tolerated When able to eat follow BRAT diet: Bananas, rice, applesauce, toast Take ibuprofen or Tylenol for pain as needed every 6 hours Follow up with primary within 5 days Return to ED if develop any new or worsening symptoms - Billing Disposition and Condition Condition: GOOD Disposition: Home
[2018-11-06 12:12] LABS: Albumin 4.7 g/dL (3.2-5.2); Albumin/Globulin Ratio 1.6 (1-3); BUN/Creatinine Ratio 13.2 (8-20); C Reactive Protein 7.61 mg/L (<8.01); Calcium 8.9 mg/dL (8.6-10.3); EGFR African American 111.3 (>60); Potassium 3.4 mmol/L (3.5-5.0); Total Bilirubin 0.5 mg/dL (0.2-1.0); Total Protein 7.7 g/dL (6.4-8.9)
[2018-11-06 12:18] LABS: HCG Pregnancy 1.52 mIU/mL
[2018-11-06] MEDS ORDERED: Iohexol 300* (CONTRAST) 10 ML SDV IV ONE (13:21)
[2018-11-06 15:05] VITALS: BP 93/67
[2018-11-06 15:24] LABS: Urine Appearance Clear; Urine Bilirubin Negative (Negative); Urine Blood Negative (Negative); Urine Color Straw; Urine Glucose Negative (Negative); Urine Ketones Negative (Negative); Urine Nitrite Negative (Negative); Urine Protein Negative (Negative); Urine Specific Gravity 1.038 (1.010-1.030); Urine Urobilinogen Negative (Negative)
--- NOTE | 2018-11-07 13:31 | PN ---
Progress Note - Progress Note Date of Service: 11/07/18 Note: Patient stool culture grew Cryptosporidium. Will treat with nitazoxanide. spoke with patient about results.
== END 2018-11-06 15:04 | disposition home or self-care (01) ==
LOC: ED 11:21
DX: R19.7 Diarrhea, unspecified (principal); R10.9 Unspecified abdominal pain; Z91.040 Latex allergy status
CPT/HCPCS: 36415; 74177; 80053; 81003; 82150; 83605; 83690; 84702; 85025; 86140; 87045; 87046; 87077; 87177; 87209; 87328; 87329; 87493; 87899; 96361; 96374; 99283; J1885; Q9967